=== PATIENT | male | born 1970 | race Caucasian/White ===

== ENCOUNTER → 2016-11-06 | Outpatient (CLI) | payer OTHER ==
[~2016-11-06] MED LIST: ASPIR 8181 MG PO; CLARITIN10 MG PO; FLEXERIL 10 MG10 MG PO; IBUPROFEN800 MG PO; KEFLEX CAP 500500 MG PO; LISINOPRIL-HCT1 EAC2 PO; METFORMIN HCL500 MG PO; NASACORT16.9 ML; PANTOPRAZOLE SO40 MG PO; PERCOCET 10-321 EACH PO; SERTRALINE HCL50 MG PO; VITAMIN C 250250 MG PO; VITAMIN D350000 UNIT PO; [UNRECOGNIZED DRUG - OTHER]
== END ==
LOC: KOH-I 09:00
DX: I73.9 Peripheral vascular disease, unspecified (principal)
CPT/HCPCS: 73700; 93926

== ENCOUNTER → 2016-12-28 | Outpatient (CLI) | payer OTHER ==
[2016-12-28 13:03] LABS: HEMOGLOBIN 18.4 gm/dl (14.0-17.5); RED BLOOD COUNT 6.24 M/UL (4.20-5.50)
[2016-12-28 13:24] LABS: BUN/CREATININE RATIO 12 (0-10)
== END ==
LOC: OPSV2 11:00
PROVIDERS: Podiatrist Foot & Ankle Surgery
DX: Z01.810 Encounter for preprocedural cardiovascular examination (principal); Z01.812 Encounter for preprocedural laboratory examination; M19.072 Primary osteoarthritis, left ankle and foot; I10 Essential (primary) hypertension; E11.9 Type 2 diabetes mellitus without complications; R00.0 Tachycardia, unspecified
CPT/HCPCS: 36415; 80048; 85025; 93005

== ENCOUNTER → 2016-12-30 | Outpatient (CLI) | payer OTHER | LOC: EMI 10:46 | DX: M54.16 Radiculopathy, lumbar region (principal); M51.36 Other intervertebral disc degeneration, lumbar region | CPT/HCPCS: 72148 ==

== ENCOUNTER 2017-01-05 07:36 | Observation (INO) | payer OTHER ==
[~2017-01-05] VITALS: Ht 172.7 cm; Wt 112.0 kg
[2017-01-05] MEDS ORDERED: LISINOPRIL-HCT1 EAC2 PO (09:42)
[2017-01-05] MEDS ORDERED: METFORMIN HCL500 MG PO (09:42)
[2017-01-05] MEDS ORDERED: IBUPROFEN800 MG PO (09:43)
[2017-01-05] MEDS ORDERED: CLARITIN10 MG PO (09:44)
[2017-01-05] MEDS ORDERED: [UNRECOGNIZED DRUG - OTHER] (09:44)
[2017-01-05] MEDS ORDERED: ASPIR 8181 MG PO (09:44)
[2017-01-05] MEDS ORDERED: PANTOPRAZOLE SO40 MG PO (09:45)
[2017-01-05] MEDS ORDERED: SERTRALINE HCL50 MG PO (09:45)
[2017-01-06] MEDS ORDERED: VITAMIN C 250250 MG PO (12:17)
[2017-01-06] MEDS ORDERED: PERCOCET 10-321 EACH PO (12:20)
[2017-01-06] MEDS ORDERED: FLEXERIL 10 MG10 MG PO (12:21)
[2017-01-06] MEDS ORDERED: KEFLEX CAP 500500 MG PO (12:27)
[2017-01-06] MEDS ORDERED: NASACORT16.9 ML (12:59)
[2017-01-06] MEDS ORDERED: VITAMIN D350000 UNIT PO (13:05)
== END 2017-01-06 16:09 | disposition home or self-care (01) ==
LOC: OR 07:36 → M/S 07:36 → ZEROF 07:37 → ZOBSOF 07:37 → OR 10:30 → M/S 20:42 → ZOBSOF 01-06 16:09 → OR 01-06 16:09 → ZOBSOF 01-06 16:09
PROVIDERS: Podiatrist Foot & Ankle Surgery; ADMIT Orthopaedic Surgery
PROC: 0QU307Z Supplement Left Pelvic Bone with Autologous Tissue Substitute, Open Approach (ICD-10-PCS; principal; 2017-01-05 10:30)
DX: M19.072 Primary osteoarthritis, left ankle and foot (principal); I10 Essential (primary) hypertension; E11.9 Type 2 diabetes mellitus without complications; K21.9 Gastro-esophageal reflux disease without esophagitis; G89.29 Other chronic pain; Z79.84 Long term (current) use of oral hypoglycemic drugs; Z79.82 Long term (current) use of aspirin; Z79.1 Long term (current) use of non-steroidal anti-inflammatories (NSAID); Z79.899 Other long term (current) drug therapy; Z88.1 Allergy status to other antibiotic agents; Z86.69 Personal history of other diseases of the nervous system and sense organs; Z87.891 Personal history of nicotine dependence
CPT/HCPCS: 73630; 76000; 82962; C1713; G0378; J0690; J1100; J1650; J1885; J2250; J2370; J2405; J2710; J2795; J3010; J3370; J7120; Q0162; Q4125